=== PATIENT | male | born 1970 | race Caucasian/White ===

== ENCOUNTER → 2024-09-10 | Outpatient (CLI) | payer MEDICAID, SELFPAY ==
[2024-09-10 09:23] LABS: Hematocrit 43.8 % (40-54); Hemoglobin 14.9 g/dL (13.0-16.5); Mean Corpuscular Hgb 29.6 pg (27.0-32.0); Mean Corpuscular Volume 87.1 fL (80-94); Mean Platelet Vol. 8.6 fl (6.2-12.0); Platelet Count 290 K/mm3 (150-450); RBC Distribution Width CV 12.5 % (11.6-14.6); RBC Distribution Width SD 39.6 fl (35.1-43.9); Red Blood Count 5.03 M/mm3 (4.6-6.2)
[2024-09-10 09:43] LABS: Erythrocyte Sedimentation Rate 10 mm/hr (0-20)
[2024-09-10 09:57] LABS: Hemoglobin A1c 8.1 % (3.8-5.6)
[2024-09-10 10:17] LABS: AST(SGOT) 25 U/L (15-37); Alanine Aminotransfer ALT/SGPT 40 U/L (16-61); Albumin, Serum 3.6 g/dL (3.2-5.0); Alkaline Phosphatase 78 U/L (45-117); Amylase 24 U/L (25-115); Anion Gap 5 (5-15); BUN 11 mg/dL (7-18); BUN/Creat Ratio 12.8 RATIO (10-20); Bilirubin, Direct 0.22 mg/dL (0.00-0.30); Chloride 108 mmol/L (98-107); Cholesterol 195 mg/dL (200); Creatinine, Serum 0.86 mg/dL (0.70-1.30); EST Glomerular Filtration Rate 99 mL/min (>60); Est Glom Filt Rate - Afr Amer 120 mL/min (>60); Ferritin 123 ng/mL (26-388); Globulin 3.6 g/dL (2.2-4.2); Glucose 174 mg/dL (74-106); High Density Lipoprotein 54 mg/dL; Iron 89 ug/dL (65-175); Iron Binding Capacity,Total 276 ug/dL (250-450); Lipase 42 U/L (13-75); PSA,Total - Annual Screen 1.61 ng/mL (0.00-4.00); Potassium 3.9 mmol/L (3.5-5.1); Protein, Total 7.2 g/dL (6.4-8.2); Sodium Level 138 mmol/L (136-145); T4 Free Direct 1.02 ng/dL (0.76-1.46); Triglycerides 84 mg/dL; Uric Acid 4.6 mg/dL (3.5-7.2); Very Low Density Lipoprotein 17 mg/dL (5-40)
[2024-09-10 10:39] LABS: Hepatitis C Antibody Non-Reactive (Nonreactive); Vitamin B12 445 pg/mL (211-911); Vitamin D,25 Hydroxy 11.5 ng/mL
[2024-09-11 17:06] LABS: Anti-Mitochondrial AB <20.0 Units (0.0-20.0)
[2024-09-14 13:07] LABS: GGTP 22 IU/L (0-65); VITAMIN B6 10.5 ug/L (3.4-65.2)
== END | disposition home or self-care (01) ==
LOC: LAB 07:51
PROVIDERS: PCP Nurse Practitioner Family; Referring Provider Nurse Practitioner Family; Visit Provider Nurse Practitioner Family
DX: Z12.5 Encounter for screening for malignant neoplasm of prostate (principal); R10.9 Unspecified abdominal pain; F10.10 Alcohol abuse, uncomplicated; Z13.6 Encounter for screening for cardiovascular disorders; E55.9 Vitamin D deficiency, unspecified; Z87.442 Personal history of urinary calculi; Z13.1 Encounter for screening for diabetes mellitus; R53.82 Chronic fatigue, unspecified
CPT/HCPCS: 84153; 36415; 80053; 80061; 82150; 82248; 82306; 82607; 82728; 82746; 82977; 83036; 83516; 83540; 83550; 83690; 84207; 84439; 84443; 84550; 85027; 85652; 86803; G0103

== ENCOUNTER → 2025-07-02 | Outpatient (CLI) | payer MEDICAID, SELFPAY ==
--- OUTSIDE RECORDS SUMMARY | 2025-07-02 08:25 | XMS RPT_ITS | CCD ---
Author Organization [facility] Inform ion [facility] Care Team Providers Care Registered Nurse Teacher Name Role Phone DENIS LOU (NUCLEAR RADIATION ENGINEER) Unavailable Unavailable NOE ESTRELLA Unavailable Unavailable DENIS LOU (NUCLEAR RADIATION ENGINEER) Unavailable Unavailable Beverly FAMILY MEDIATOR, Abe Calles Referring Unav ailable Beverly FAMILY MEDIATOR, Abe Calles Attending Unav ailable Beverly FAMILY MEDIATOR, Abe Calles Primary Care Unav ailable BEVERLY SCIENTIFIC RESEARCH MANAGER - ABE WEN Attending U navailable BEVERLY SCIENTIFIC RESEARCH MANAGER - NUCLEAR RADIATION ENGINEER, ABE Gabriel Primary Care U navailable Problems Problem Classification Problem Date Documented Da te Episodic/Chronic Diabetes mellitus without complication (2 sources) Type 2 diabetes mellitus without complications; Translations: [Type 2 diabetes mellitus without complications] Onset: 01-10-2025 Chronic Other aftercare (1 source) Encounter for therapeutic drug level monitoring; Translations: [Encounter for therapeutic drug level monitoring] Onset: 04-06-2018 Episodic Unclassified (3 sources) Encounter for screening for lipoid disorders; Translations: [Encounter for screening for diabetes mellitus] Onset: 04-06-2018 Episodic Results Test Name Value Interpretation Reference Range [facility] 01-10-2025 U Creatinine 117.5 mg/dL Normal 40.0-278.0 [facility] Comment on above: Performed By: #### MALBR #### [address] [place], [place] [address] U Microalb 5.9 mg/L Normal [facility] Comment on above: Performed By: #### MALBR #### [address] [place], [place] [address] U Ratio Alb/Cre 5 mg/G Normal 0-30 [facility] Comment on above: Performed By: #### MALBR #### [address] [place], [place] [address] L3300.8200on 09-14-2024 VITAMIN B6 10.5 ug/L Normal 3.4-65.2 [facility] Comment on above: Order Comment: Test(s) 762839-Nsvguge B6 was developed and its performance characteristicsdetermined by [facility]. It has not been cleared or approvedby the Food and Drug Administration. Result Comment: Defi ciency: <3.4 Marginal: 3.4 - 5.1 Adequate: >5.1 Performed By: #### L 501.4700, L501.5101, L3300.8200, L100.0500, L3890.6300, L503.0105, L501.1400, L500.4100, L506.1000, L501.9910, L500.4050, L501.2400, L506.0400, L506.0250, L501.2450, L501.9520, L503.6075, L501.9985, L503.6150, L101.9900, L800.1280, L503.6550 #### [facility] [address] [place], [place], [address] L501.5101on 09-14-2024 GGTP 22 IU/L Normal 0-65 [facility] Comment on above: Order Comment: Test(s) [id number]-Oormpwc B6 was developed and its performance characteristicsdetermined by [facility]. It has not been cleared or approvedby the Food and Drug Administration. Result Comment: Perf ormed at: [address] [id number] Manager Diesel: Macario Lynn MD, Phone: [phone] Performed at: [address] [id number] Manager Diesel: Dio Ambriz PhD, Phone: [phone] Performed By: #### L 501.4700, L501.5101, L3300.8200, L100.0500, L3890.6300, L503.0105, L501.1400, L500.4100, L506.1000, L501.9910, L500.4050, L501.2400, L506.0400, L506.0250, L501.2450, L501.9520, L503.6075, L501.9985, L503.6150, L101.9900, L800.1280, L503.6550 #### [facility] [address] [facility] [place], [place], [id number] Anti-Mitochondrial ABon 08-25 ANTIMITOCHON AB <20.0 Normal 0.0-20.0 [facility] Comment on above: Result Comment: Negative 0.0 - 20.0 Equivocal 20.1 - 24.9 Positive >24.9 Mitochondrial (M2) Antibodies are found in 90-96% of patients with primary biliary cirrhosis. Performed at: [address] [id number] Manager Diesel: Dio Ambriz PhD, Phone: [phone] Performed By: #### L 501.4700, L501.5101, L3300.8200, L100.0500, L3890.6300, L503.0105, L501.1400, L500.4100, L506.1000, L501.9910, L500.4050, L501.2400, L506.0400, L506.0250, L501.2450, L501.9520, L503.6075, L501.9985, L503.6150, L101.9900, L800.1280, L503.6550 #### [facility] [address] [place], [place], [id number] Amylaseon 09-10-2024 LOLA 24 U/L Low 25-115 [facility] Comment on above: Order Comment: N Performed By: #### L 501.4700, L501.5101, L3300.8200, L100.0500, L3890.6300, L503.0105, L501.1400, L500.4100, L506.1000, L501.9910, L500.4050, L501.2400, L506.0400, L506.0250, L501.2450, L501.9520, L503.6075, L501.9985, L503.6150, L101.9900, L800.1280, L503.6550 #### [facility] [address] [place], [place], [address] Bilirubin, Directon 09-10-19 Bilirubin.direct [Mass/Vol] 0.22 mg/dL Normal 0.00-0.30 [facility] Comment on above: Order Comment: N Performed By: #### L 501.4700, L501.5101, L3300.8200, L100.0500, L3890.6300, L503.0105, L501.1400, L500.4100, L506.1000, L501.9910, L500.4050, L501.2400, L506.0400, L506.0250, L501.2450, L501.9520, L503.6075, L501.9985, L503.6150, L101.9900, L800.1280, L503.6550 #### [facility] [address] [place], [address] CBC-Complete Blood Cnt No Di ffon 09-10-2024 Erythrocyte distribution width (RBC) [Ratio] 12.5 % Normal 11.6-14.6 [facility] Comment on above: Performed By: #### L501.4700, L501.5101, L3300.8200, L100.0500, L3890.6300, L503.0105, L501.1400, L500.4100, L506.1000, L501.9910, L500.4050, L501.2400, L506.0400, L506.0250, L501.2450, L501.9520, L503.6075, L501.9985, L503.6150, L101.9900, L800.1280, L503.6550 #### [facility] [address] [place], [place], [id number] Hematocrit (Bld) [Volume fraction] 43.8 % Normal 40-54 [facility] Comment on above: Performed By: #### L501.4700, L501.5101, L3300.8200, L100.0500, L3890.6300, L503.0105, L501.1400, L500.4100, L506.1000, L501.9910, L500.4050, L501.2400, L506.0400, L506.0250, L501.2450, L501.9520, L503.6075, L501.9985, L503.6150, L101.9900, L800.1280, L503.6550 #### [facility] [address] [place], [address] (646) Hemoglobin (Bld) [Mass/Vol] 14.9 g/dL Normal 13.0-16.5 [facility] Comment on above: Performed By: #### L501.4700, L501.5101, L3300.8200, L100.0500, L3890.6300, L503.0105, L501.1400, L500.4100, L506.1000, L501.9910, L500.4050, L501.2400, L506.0400, L506.0250, L501.2450, L501.9520, L503.6075, L501.9985, L503.6150, L101.9900, L800.1280, L503.6550 #### [facility] [address] [place], [address] MCH (RBC) [Entitic mass] 29.6 pg Normal 27.0-32.0 [facility] Comment on above: Performed By: #### L501.4700, L501.5101, L3300.8200, L100.0500, L3890.6300, L503.0105, L501.1400, L500.4100, L506.1000, L501.9910, L500.4050, L501.2400, L506.0400, L506.0250, L501.2450, L501.9520, L503.6075, L501.9985, L503.6150, L101.9900, L800.1280, L503.6550 #### [facility] [address] [place], [address] MCHC (RBC) [Mass/Vol] 34.0 g/dL Normal 32-36 [facility] Comment on above: Performed By: #### L501.4700, L501.5101, L3300.8200, L100.0500, L3890.6300, L503.0105, L501.1400, L500.4100, L506.1000, L501.9910, L500.4050, L501.2400, L506.0400, L506.0250, L501.2450, L501.9520, L503.6075, L501.9985, L503.6150, L101.9900, L800.1280, L503.6550 #### [facility] [address] [place], [address] MCV (RBC) [Entitic vol] 87.1 fL Normal 80-94 [facility] Comment on above: Performed By: #### L501.4700, L501.5101, L3300.8200, L100.0500, L3890.6300, L503.0105, L501.1400, L500.4100, L506.1000, L501.9910, L500.4050, L501.2400, L506.0400, L506.0250, L501.2450, L501.9520, L503.6075, L501.9985, L503.6150, L101.9900, L800.1280, L503.6550 #### [facility] [address] [place], [address] Platelet mean volume (Bld) [Entitic vol] 8.6 fL Normal 6.2-12.0 [facility] Comment on above: Performed By: #### L501.4700, L501.5101, L3300.8200, L100.0500, L3890.6300, L503.0105, L501.1400, L500.4100, L506.1000, L501.9910, L500.4050, L501.2400, L506.0400, L506.0250, L501.2450, L501.9520, L503.6075, L501.9985, L503.6150, L101.9900, L800.1280, L503.6550 #### [facility] [address] [facility] [place], [place], [id number] (940) Platelets (Bld) [#/Vol] 290 10*3/uL Normal 150-450 [facility] Comment on above: Performed By: #### L501.4700, L501.5101, L3300.8200, L100.0500, L3890.6300, L503.0105, L501.1400, L500.4100, L506.1000, L501.9910, L500.4050, L501.2400, L506.0400, L506.0250, L501.2450, L501.9520, L503.6075, L501.9985, L503.6150, L101.9900, L800.1280, L503.6550 #### [facility] [address] [facility] [place], [place], [id number] (502) RBC (Bld) [#/Vol] 5.03 10*6/uL Normal 4.6-6.2 [facility] Comment on above: Performed By: #### L501.4700, L501.5101, L3300.8200, L100.0500, L3890.6300, L503.0105, L501.1400, L500.4100, L506.1000, L501.9910, L500.4050, L501.2400, L506.0400, L506.0250, L501.2450, L501.9520, L503.6075, L501.9985, L503.6150, L101.9900, L800.1280, L503.6550 #### [facility] [address] [place], [place], [id number] RDW SD 39.6 fl Normal 35.1-43.9 [facility] Comment on above: Performed By: #### L501.4700, L501.5101, L3300.8200, L100.0500, L3890.6300, L503.0105, L501.1400, L500.4100, L506.1000, L501.9910, L500.4050, L501.2400, L506.0400, L506.0250, L501.2450, L501.9520, L503.6075, L501.9985, L503.6150, L101.9900, L800.1280, L503.6550 #### [facility] [address] [place], [address] WBC (Bld) [#/Vol] 7.0 10*3/uL Normal 4.4-11.0 [facility] Comment on above: Performed By: #### L501.4700, L501.5101, L3300.8200, L100.0500, L3890.6300, L503.0105, L501.1400, L500.4100, L506.1000, L501.9910, L500.4050, L501.2400, L506.0400, L506.0250, L501.2450, L501.9520, L503.6075, L501.9985, L503.6150, L101.9900, L800.1280, L503.6550 #### [facility] [address] [place], [address] Comprehensive Metabolic Prof [facility] 09-10-2024 Albumin [Mass/Vol] 3.6 g/dL Normal 3.2-5.0 [facility] Comment on above: Order Comment: N Performed By: #### L 501.4700, L501.5101, L3300.8200, L100.0500, L3890.6300, L503.0105, L501.1400, L500.4100, L506.1000, L501.9910, L500.4050, L501.2400, L506.0400, L506.0250, L501.2450, L501.9520, L503.6075, L501.9985, L503.6150, L101.9900, L800.1280, L503.6550 #### [facility] [address] [facility] [place], [place], [id number] Albumin/Globulin [Mass ratio] 1.0 {ratio} Normal 0.9-2.4 [facility] Comment on above: Order Comment: N Performed By: #### L 501.4700, L501.5101, L3300.8200, L100.0500, L3890.6300, L503.0105, L501.1400, L500.4100, L506.1000, L501.9910, L500.4050, L501.2400, L506.0400, L506.0250, L501.2450, L501.9520, L503.6075, L501.9985, L503.6150, L101.9900, L800.1280, L503.6550 #### [facility] [address] [place], [address] ALK P 78 U/L Normal 45-117 [facility] Comment on above: Order Comment: N Performed By: #### L 501.4700, L501.5101, L3300.8200, L100.0500, L3890.6300, L503.0105, L501.1400, L500.4100, L506.1000, L501.9910, L500.4050, L501.2400, L506.0400, L506.0250, L501.2450, L501.9520, L503.6075, L501.9985, L503.6150, L101.9900, L800.1280, L503.6550 #### [facility] [address] [facility] [place], [address] ALT [Catalytic activity/Vol] 40 U/L Normal 16-61 [facility] Comment on above: Order Comment: N Performed By: #### L 501.4700, L501.5101, L3300.8200, L100.0500, L3890.6300, L503.0105, L501.1400, L500.4100, L506.1000, L501.9910, L500.4050, L501.2400, L506.0400, L506.0250, L501.2450, L501.9520, L503.6075, L501.9985, L503.6150, L101.9900, L800.1280, L503.6550 #### [facility] [address] [facility] [place], [address] AST [Catalytic activity/Vol] 25 U/L Normal 15-37 [facility] Comment on above: Order Comment: N Performed By: #### L 501.4700, L501.5101, L3300.8200, L100.0500, L3890.6300, L503.0105, L501.1400, L500.4100, L506.1000, L501.9910, L500.4050, L501.2400, L506.0400, L506.0250, L501.2450, L501.9520, L503.6075, L501.9985, L503.6150, L101.9900, L800.1280, L503.6550 #### [facility] [address] [facility] [place], [address] Bilirubin [Mass/Vol] 0.90 mg/dL Normal 0.20-1.00 [facility] Comment on above: Order Comment: N Result Comment: For patients on eltrombopag therapy, use of Dimension [place] TBIL is not recommended. Performed By: #### L 501.4700, L501.5101, L3300.8200, L100.0500, L3890.6300, L503.0105, L501.1400, L500.4100, L506.1000, L501.9910, L500.4050, L501.2400, L506.0400, L506.0250, L501.2450, L501.9520, L503.6075, L501.9985, L503.6150, L101.9900, L800.1280, L503.6550 #### [facility] [address] [place], [place], [id number] BUN/CRE 12.8 RATIO Normal 10-20 [facility] Comment on above: Order Comment: N Performed By: #### L 501.4700, L501.5101, L3300.8200, L100.0500, L3890.6300, L503.0105, L501.1400, L500.4100, L506.1000, L501.9910, L500.4050, L501.2400, L506.0400, L506.0250, L501.2450, L501.9520, L503.6075, L501.9985, L503.6150, L101.9900, L800.1280, L503.6550 #### [facility] [address] [place], [place], [id number] CA,Total 9.0 mg/dL Normal 8.5-10.1 [facility] Comment on above: Order Comment: N Performed By: #### L 501.4700, L501.5101, L3300.8200, L100.0500, L3890.6300, L503.0105, L501.1400, L500.4100, L506.1000, L501.9910, L500.4050, L501.2400, L506.0400, L506.0250, L501.2450, L501.9520, L503.6075, L501.9985, L503.6150, L101.9900, L800.1280, L503.6550 #### [facility] [address] [place], [address] Chloride [Moles/Vol] 108 mmol/L High 98-107 [facility] Comment on above: Order Comment: N Performed By: #### L 501.4700, L501.5101, L3300.8200, L100.0500, L3890.6300, L503.0105, L501.1400, L500.4100, L506.1000, L501.9910, L500.4050, L501.2400, L506.0400, L506.0250, L501.2450, L501.9520, L503.6075, L501.9985, L503.6150, L101.9900, L800.1280, L503.6550 #### [facility] [address] [place], [address] CO2 [Moles/Vol] 25.0 mmol/L Normal 21.0-32.0 [facility] Comment on above: Order Comment: N Performed By: #### L 501.4700, L501.5101, L3300.8200, L100.0500, L3890.6300, L503.0105, L501.1400, L500.4100, L506.1000, L501.9910, L500.4050, L501.2400, L506.0400, L506.0250, L501.2450, L501.9520, L503.6075, L501.9985, L503.6150, L101.9900, L800.1280, L503.6550 #### [facility] [address] [place], [place], [id number] Creatinine [Mass/Vol] 0.86 mg/dL Normal 0.70-1.30 [facility] Comment on above: Order Comment: N Result Comment: The validity of the calculated GFR GFRAA in patients over 70 years has not been determined. Clinical correlation is essential. Performed By: #### L 501.4700, L501.5101, L3300.8200, L100.0500, L3890.6300, L503.0105, L501.1400, L500.4100, L506.1000, L501.9910, L500.4050, L501.2400, L506.0400, L506.0250, L501.2450, L501.9520, L503.6075, L501.9985, L503.6150, L101.9900, L800.1280, L503.6550 #### [facility] [address] [place], [address] EST GFR - AA 120 mL/min Normal >60 [facility] Comment on above: Order Comment: N Result Comment: Afri can Mozambican GFR Calc Performed By: #### L 501.4700, L501.5101, L3300.8200, L100.0500, L3890.6300, L503.0105, L501.1400, L500.4100, L506.1000, L501.9910, L500.4050, L501.2400, L506.0400, L506.0250, L501.2450, L501.9520, L503.6075, L501.9985, L503.6150, L101.9900, L800.1280, L503.6550 #### [facility] [address] [place], [address] GAP 5 Normal 5-15 [facility] Comment on above: Order Comment: N Performed By: #### L 501.4700, L501.5101, L3300.8200, L100.0500, L3890.6300, L503.0105, L501.1400, L500.4100, L506.1000, L501.9910, L500.4050, L501.2400, L506.0400, L506.0250, L501.2450, L501.9520, L503.6075, L501.9985, L503.6150, L101.9900, L800.1280, L503.6550 #### [facility] [address] [facility] [place], [address] GFR/1.73 sq M.predicted among non-blacks MDRD (S/P/Bld) [Vol rate/Area] 99 mL/min/{1.73_m2} Normal >60 [facility] Comment on above: Order Comment: N Result Comment: Non- GFR Calc Performed By: #### L 501.4700, L501.5101, L3300.8200, L100.0500, L3890.6300, L503.0105, L501.1400, L500.4100, L506.1000, L501.9910, L500.4050, L501.2400, L506.0400, L506.0250, L501.2450, L501.9520, L503.6075, L501.9985, L503.6150, L101.9900, L800.1280, L503.6550 #### [facility] [address] [facility] [place], [place], [id number] Globulin (S) [Mass/Vol] 3.6 g/dL Normal 2.2-4.2 [facility] Comment on above: Order Comment: N Performed By: #### L 501.4700, L501.5101, L3300.8200, L100.0500, L3890.6300, L503.0105, L501.1400, L500.4100, L506.1000, L501.9910, L500.4050, L501.2400, L506.0400, L506.0250, L501.2450, L501.9520, L503.6075, L501.9985, L503.6150, L101.9900, L800.1280, L503.6550 #### [facility] [address] [place], [address] Glucose [Mass/Vol] 174 mg/dL High 74-106 [facility] Comment on above: Order Comment: N Result Comment: Fast ing Glucose result greater than or equal to 126 mg/dL suggests DIABETES MELLITUS per A.D.A. criteria. Performed By: #### L 501.4700, L501.5101, L3300.8200, L100.0500, L3890.6300, L503.0105, L501.1400, L500.4100, L506.1000, L501.9910, L500.4050, L501.2400, L506.0400, L506.0250, L501.2450, L501.9520, L503.6075, L501.9985, L503.6150, L101.9900, L800.1280, L503.6550 #### [facility] [address] [facility] [place], [address] Potassium [Moles/Vol] 3.9 mmol/L Normal 3.5-5.1 [facility] Comment on above: Order Comment: N Performed By: #### L 501.4700, L501.5101, L3300.8200, L100.0500, L3890.6300, L503.0105, L501.1400, L500.4100, L506.1000, L501.9910, L500.4050, L501.2400, L506.0400, L506.0250, L501.2450, L501.9520, L503.6075, L501.9985, L503.6150, L101.9900, L800.1280, L503.6550 #### [facility] [address] [place], [address] Sodium [Moles/Vol] 138 mmol/L Normal 136-145 [facility] Comment on above: Order Comment: N Performed By: #### L 501.4700, L501.5101, L3300.8200, L100.0500, L3890.6300, L503.0105, L501.1400, L500.4100, L506.1000, L501.9910, L500.4050, L501.2400, L506.0400, L506.0250, L501.2450, L501.9520, L503.6075, L501.9985, L503.6150, L101.9900, L800.1280, L503.6550 #### [facility] [address] [place], [place], [id number] T PROT 7.2 g/dL Normal 6.4-8.2 [facility] Comment on above: Order Comment: N Performed By: #### L 501.4700, L501.5101, L3300.8200, L100.0500, L3890.6300, L503.0105, L501.1400, L500.4100, L506.1000, L501.9910, L500.4050, L501.2400, L506.0400, L506.0250, L501.2450, L501.9520, L503.6075, L501.9985, L503.6150, L101.9900, L800.1280, L503.6550 #### [facility] [address] [place], [address] Urea nitrogen [Mass/Vol] 11 mg/dL Normal 7-18 [facility] Comment on above: Order Comment: N Performed By: #### L 501.4700, L501.5101, L3300.8200, L100.0500, L3890.6300, L503.0105, L501.1400, L500.4100, L506.1000, L501.9910, L500.4050, L501.2400, L506.0400, L506.0250, L501.2450, L501.9520, L503.6075, L501.9985, L503.6150, L101.9900, L800.1280, L503.6550 #### [facility] [address] [place], [address] Erythrocyte Sed Rateon 09-10 SED RATE 10 mm/hr Normal 0-20 [facility] Comment on above: Performed By: #### L501.4700, L501.5101, L3300.8200, L100.0500, L3890.6300, L503.0105, L501.1400, L500.4100, L506.1000, L501.9910, L500.4050, L501.2400, L506.0400, L506.0250, L501.2450, L501.9520, L503.6075, L501.9985, L503.6150, L101.9900, L800.1280, L503.6550 #### [facility] [address] [place], [address] Ferritinon 09-10-2024 Ferritin [Mass/Vol] 123 ng/mL Normal 26-388 [facility] Comment on above: Order Comment: N Performed By: #### L 501.4700, L501.5101, L3300.8200, L100.0500, L3890.6300, L503.0105, L501.1400, L500.4100, L506.1000, L501.9910, L500.4050, L501.2400, L506.0400, L506.0250, L501.2450, L501.9520, L503.6075, L501.9985, L503.6150, L101.9900, L800.1280, L503.6550 #### [facility] [address] [place], [address] Folates, (Folic Acid)on 08-25 FOLATES 14.20 ng/mL Normal 3.1-55.4 [facility] Comment on above: Order Comment: N Performed By: #### L 501.4700, L501.5101, L3300.8200, L100.0500, L3890.6300, L503.0105, L501.1400, L500.4100, L506.1000, L501.9910, L500.4050, L501.2400, L506.0400, L506.0250, L501.2450, L501.9520, L503.6075, L501.9985, L503.6150, L101.9900, L800.1280, L503.6550 #### [facility] [address] [facility] [place], [place], [id number] Hemoglobin A1con 09-10-2024 HbA1c (Bld) [Mass fraction] 8.1 % High 3.8-5.6 [facility] Comment on above: Result Comment: Normal < 5.7 % Prediabetic 5.7 - 6.4 % Diabetic >or= 6.5 % Please note range changes. Performed By: #### L 501.4700, L501.5101, L3300.8200, L100.0500, L3890.6300, L503.0105, L501.1400, L500.4100, L506.1000, L501.9910, L500.4050, L501.2400, L506.0400, L506.0250, L501.2450, L501.9520, L503.6075, L501.9985, L503.6150, L101.9900, L800.1280, L503.6550 #### [facility] [address] [facility] [place], [place], [id number] Hepatitis C Antibodyon 09-10 Hepatitis C AB Non-Reactive Normal Nonreactive [facility] Comment on above: Result Comment: Non Reactive: < 0.8 Equivocal: >/= 0.8 to < 1.0 Reactive: >/= 1.0 The CDC requires that a reactive/equivocal HCV antibody result be sent out for confirmation. HCV Quant by PCR testing. Performed By: #### L 501.4700, L501.5101, L3300.8200, L100.0500, L3890.6300, L503.0105, L501.1400, L500.4100, L506.1000, L501.9910, L500.4050, L501.2400, L506.0400, L506.0250, L501.2450, L501.9520, L503.6075, L501.9985, L503.6150, L101.9900, L800.1280, L503.6550 #### [facility] [address] [facility] [place], [place], [id number] Ironon 09-10-2024 Iron [Mass/Vol] 89 ug/dL Normal 65-175 [facility] Comment on above: Order Comment: N Performed By: #### L 501.4700, L501.5101, L3300.8200, L100.0500, L3890.6300, L503.0105, L501.1400, L500.4100, L506.1000, L501.9910, L500.4050, L501.2400, L506.0400, L506.0250, L501.2450, L501.9520, L503.6075, L501.9985, L503.6150, L101.9900, L800.1280, L503.6550 #### [facility] [address] [facility] [place], [place], [id number] [phone] Iron Binding Capacity,Totalo n 09-10-2024 TIBC 276 ug/dL Normal 250-450 [facility] Comment on above: Order Comment: N Performed By: #### L 501.4700, L501.5101, L3300.8200, L100.0500, L3890.6300, L503.0105, L501.1400, L500.4100, L506.1000, L501.9910, L500.4050, L501.2400, L506.0400, L506.0250, L501.2450, L501.9520, L503.6075, L501.9985, L503.6150, L101.9900, L800.1280, L503.6550 #### [facility] [address] [place], [place], [id number] Lipaseon 09-10-2024 Lipase [Catalytic activity/Vol] 42 U/L Normal 13-75 [facility] Comment on above: Order Comment: N Result Comment: Bakari macias note: LIPASE revised reference range effective 22. New Lipase methodology. Expected to produce lower values than the previous assay method. NEW Reference Range: 13 - 75 U/L Performed By: #### L 501.4700, L501.5101, L3300.8200, L100.0500, L3890.6300, L503.0105, L501.1400, L500.4100, L506.1000, L501.9910, L500.4050, L501.2400, L506.0400, L506.0250, L501.2450, L501.9520, L503.6075, L501.9985, L503.6150, L101.9900, L800.1280, L503.6550 #### [facility] [address] [place], [address] Lipid Profileon 09-10-2024 Cholesterol [Mass/Vol] 195 mg/dL Normal 200 [facility] Comment on above: Order Comment: N Result Comment: <200 mg/dL Desirable 200-240 mg/dL Borderline >240 mg/dL High Risk Performed By: #### L 501.4700, L501.5101, L3300.8200, L100.0500, L3890.6300, L503.0105, L501.1400, L500.4100, L506.1000, L501.9910, L500.4050, L501.2400, L506.0400, L506.0250, L501.2450, L501.9520, L503.6075, L501.9985, L503.6150, L101.9900, L800.1280, L503.6550 #### [facility] [address] [place], [address] (313) Cholesterol in HDL [Mass/Vol] 54 mg/dL Normal [facility] Comment on above: Order Comment: N Result Comment: The drugs N-Acetylcysteine and Metamizole may falsely depress this assay. Reference Range HDL <40 mg/dL Low HDL Cholesterol HDL >or= 60 mg/dL High HDL Cholesterol Performed By: #### L 501.4700, L501.5101, L3300.8200, L100.0500, L3890.6300, L503.0105, L501.1400, L500.4100, L506.1000, L501.9910, L500.4050, L501.2400, L506.0400, L506.0250, L501.2450, L501.9520, L503.6075, L501.9985, L503.6150, L101.9900, L800.1280, L503.6550 #### [facility] [address] [place], [address] Cholesterol in LDL [Mass/Vol] 124 mg/dL Normal 0-130 [facility] Comment on above: Order Comment: N Performed By: #### L 501.4700, L501.5101, L3300.8200, L100.0500, L3890.6300, L503.0105, L501.1400, L500.4100, L506.1000, L501.9910, L500.4050, L501.2400, L506.0400, L506.0250, L501.2450, L501.9520, L503.6075, L501.9985, L503.6150, L101.9900, L800.1280, L503.6550 #### [facility] [address] [facility] [place], [address] Cholesterol in VLDL [Mass/Vol] 17 mg/dL Normal 5-40 [facility] Comment on above: Order Comment: N Performed By: #### L 501.4700, L501.5101, L3300.8200, L100.0500, L3890.6300, L503.0105, L501.1400, L500.4100, L506.1000, L501.9910, L500.4050, L501.2400, L506.0400, L506.0250, L501.2450, L501.9520, L503.6075, L501.9985, L503.6150, L101.9900, L800.1280, L503.6550 #### [facility] [address] [facility]. [place], [place], [id number] Triglyceride [Mass/Vol] 84 mg/dL Normal [facility] Comment on above: Order Comment: N Result Comment: The drugs N-Acetylcysteine and Metamizole may falsely depress this assay. Serum Triglycerides Reference Interval Normal <150 mg/dL Borderline high 150 - 199 mg/dL High 200 - 499 mg/dL Very High > or = 500 mg/dL Performed By: #### L 501.4700, L501.5101, L3300.8200, L100.0500, L3890.6300, L503.0105, L501.1400, L500.4100, L506.1000, L501.9910, L500.4050, L501.2400, L506.0400, L506.0250, L501.2450, L501.9520, L503.6075, L501.9985, L503.6150, L101.9900, L800.1280, L503.6550 #### [facility] [address] [facility]. [place], [place], [id number] PSA,Total - Annual Screenon 09-10-2024 PSA,TOT SCREEN 1.61 ng/mL Normal 0.00-4.00 [facility] Comment on above: Order Comment: N Result Comment: This test was performed using the TPSA assay method for the [employer] chemistry system. Values obtained with different assay methods cannot be used interchangably. When changing PSA assays in the course of monitoring a patient, additional sequential testing should be carried out to confirm baseline values. Performed By: #### L 501.4700, L501.5101, L3300.8200, L100.0500, L3890.6300, L503.0105, L501.1400, L500.4100, L506.1000, L501.9910, L500.4050, L501.2400, L506.0400, L506.0250, L501.2450, L501.9520, L503.6075, L501.9985, L503.6150, L101.9900, L800.1280, L503.6550 #### [facility] [address] [place], [address] T4 Free Directon 09-10-2024 T4 FREE DIRECT 1.02 ng/dL Normal 0.76-1.46 [facility] Comment on above: Order Comment: N Performed By: #### L 501.4700, L501.5101, L3300.8200, L100.0500, L3890.6300, L503.0105, L501.1400, L500.4100, L506.1000, L501.9910, L500.4050, L501.2400, L506.0400, L506.0250, L501.2450, L501.9520, L503.6075, L501.9985, L503.6150, L101.9900, L800.1280, L503.6550 #### [facility] [address] [facility] [place], [address] Thyroid Stim Hormone (TSH)on 09-10-2024 TSH 1.350 uIU/mL Normal 0.358-3.740 [facility] Comment on above: Order Comment: N Performed By: #### L 501.4700, L501.5101, L3300.8200, L100.0500, L3890.6300, L503.0105, L501.1400, L500.4100, L506.1000, L501.9910, L500.4050, L501.2400, L506.0400, L506.0250, L501.2450, L501.9520, L503.6075, L501.9985, L503.6150, L101.9900, L800.1280, L503.6550 #### [facility] [address] [place], [address] Uric Acidon 09-10-2024 URIC 4.6 mg/dL Normal 3.5-7.2 [facility] Comment on above: Order Comment: N Result Comment: The drugs N-Acetylcysteine and Metamizole may falsely depress this assay. Performed By: #### L 501.4700, L501.5101, L3300.8200, L100.0500, L3890.6300, L503.0105, L501.1400, L500.4100, L506.1000, L501.9910, L500.4050, L501.2400, L506.0400, L506.0250, L501.2450, L501.9520, L503.6075, L501.9985, L503.6150, L101.9900, L800.1280, L503.6550 #### [facility] [address] [place], [place], [id number] Vitamin B12on 09-10-2024 Cobalamin (Vitamin B12) [Mass/Vol] 445 pg/mL Normal 211-911 [facility] Comment on above: Performed By: #### L501.4700, L501.5101, L3300.8200, L100.0500, L3890.6300, L503.0105, L501.1400, L500.4100, L506.1000, L501.9910, L500.4050, L501.2400, L506.0400, L506.0250, L501.2450, L501.9520, L503.6075, L501.9985, L503.6150, L101.9900, L800.1280, L503.6550 #### [facility] [address] [place], [address] Vitamin D,25 Hydroxyon 09-10 Vitamin D 25-OH 11.5 ng/mL Normal [facility] Comment on above: Result Comment: Vitamin D 25(OH) Status Range Deficiency <20 ng/mL (50nmol/L) Insufficiency 20 - 30 ng/mL (50 - 75 nmol/L) Sufficiency 30 - 100 ng/mL (75 - 250 nmol/L) Toxicity >100 ng/mL (>250 nmol/L) Performed By: #### L 501.4700, L501.5101, L3300.8200, L100.0500, L3890.6300, L503.0105, L501.1400, L500.4100, L506.1000, L501.9910, L500.4050, L501.2400, L506.0400, L506.0250, L501.2450, L501.9520, L503.6075, L501.9985, L503.6150, L101.9900, L800.1280, L503.6550 #### [facility] [address] [place], [place], [id number] CBCon 04-06-2018 Absolute nRBC <0.01 Normal <0.01 [facility] Comment on above: Performed By: #### CBC, CMP, LIPNF ####C [address] [phone] Erythrocyte distribution width Auto Ratio (RBC) 12.7 % Normal 11.5-15.0 [facility] Comment on above: Performed By: #### CBC, CMP, LIPNF ####C [address] [phone] Hematocrit Auto Volume Fraction (Bld) 44.9 % Normal 39.0-51.0 [facility] Comment on above: Performed By: #### CBC, CMP, LIPNF ####C [address] [phone] Hemoglobin mass conc (Bld) 15.1 g/dL Normal 13.0-17.0 [facility] Comment on above: Performed By: #### CBC, CMP, LIPNF ####C [place] [phone] MCH Auto Entitic mass (RBC) 31.3 pG Normal 26.0-34.0 [facility] Comment on above: Performed By: #### CBC, CMP, LIPNF ####C [phone] MCHC Auto mass conc (RBC) 33.6 g/dL Normal 30.5-36.0 [facility] Comment on above: Performed By: #### CBC, CMP, LIPNF ####C [place] [phone] MCV Auto Entitic volume (RBC) 93.0 fL Normal 80.0-100.0 [facility] Comment on above: Performed By: #### CBC, CMP, LIPNF ####C [place] [phone] Platelet mean volume Auto Entitic volume (Bld) 9.3 fL Normal 9.0-12.7 [facility] Comment on above: Performed By: #### CBC, CMP, LIPNF ####C [place] [phone] Platelets Auto #/vol (Bld) 269 10*3/uL Normal 150-400 [facility] Comment on above: Performed By: #### CBC, CMP, LIPNF ####C [place] [phone] RBC Auto #/vol (Bld) 4.83 10*6/uL Normal 4.20-6.00 [facility] Comment on above: Performed By: #### CBC, CMP, LIPNF ####C [place] [phone] WBC Auto #/vol (Bld) 5.44 10*3/uL Normal 3.70-11.00 [facility] Comment on above: Performed By: #### CBC, CMP, LIPNF ####[address] [place] [phone] Comp Metabolic Panelon 04-06 Albumin mass conc 4.2 g/dL Normal 3.9-4.9 [facility] Comment on above: Performed By: #### CBC, CMP, LIPNF ####C [place] [phone] ALP enzyme act/vol 58 U/L Normal 36-108 [facility] Comment on above: Performed By: #### CBC, CMP, LIPNF ####C [place] [phone] ALT enzyme act/vol 36 U/L Normal 10-54 [facility] Comment on above: Performed By: #### CBC, CMP, LIPNF ####C [place] [phone] Anion gap 3 molar conc 16 mmol/L Normal 9-18 [facility] Comment on above: Performed By: #### CBC, CMP, LIPNF ####C [place] [phone] AST enzyme act/vol 38 U/L Normal 14-40 [facility] Comment on above: Performed By: #### CBC, CMP, LIPNF ####C [address] [place] [phone] Bilirubin mass conc 0.6 mg/dL Normal 0.2-1.3 [facility] Comment on above: Performed By: #### CBC, CMP, LIPNF ####[address] [place] [phone] Calcium mass conc 8.7 mg/dL Normal 8.5-10.2 [facility] Comment on above: Performed By: #### CBC, CMP, LIPNF ####C [phone] Chloride molar conc 105 mmol/L Normal 97-105 [facility] Comment on above: Performed By: #### CBC, CMP, LIPNF ####C [place] [phone] CO2 molar conc 21 mmol/L Low 22-30 [facility] Comment on above: Performed By: #### CBC, CMP, LIPNF ####C [phone] Creatinine mass conc 0.90 mg/dL Normal 0.73-1.22 [facility] Comment on above: Performed By: #### CBC, CMP, LIPNF ####C [place] [phone] eGFR- Amer. >60 Normal [facility] Comment on above: Performed By: #### CBC, CMP, LIPNF ####C [place] [phone] GFR/1.73 sq M predicted among non-blacks MDRD vol rate/area (S/P/Bld) mL/min/{1.73_m2} Normal [facility] Comment on above: Result Comment: eGFR (Estimated GFR) Uni ts of measure: mL/min/1.73 meters squaredeGFR is derived from the reexpressed MDRD Study equation using the following parameters: serum creatinine, age, gender and race. The creatinine assay has been calibrated to be traceable to IDMS.An eGFR <60 mL/min/1.73m2 for >3 months is consistent with chronic kidney disease. Refer to KDOQI guidelines for clinical interpretation.In patients with unstable renal function, e.g. those with acute kidney injury, the eGFR may not accurately reflect actual GFR. Performed By: #### C BC, CMP, LIPNF ####[place] [phone] Glucose mass conc 161 mg/dL High 74-99 [facility] Comment on above: Result Comment: The [place] Diabetes As sociation (ADA) provides guidance for cutoff values for fasting glucose and random glucose. The ADA defines fasting as no caloric intake for at least 8 hours. Fasting plasma glucose results between 100 to 125 mg/dL indicate increased risk for diabetes (prediabetes).Fasting plasma glucose results greater than or equal to 126 mg/dL meet the criteria for diagnosis of diabetes. In the absence of unequivocal hyperglycemia, results should be confirmed by repeat testing. In a patient with classic symptoms of hyperglycemia or hyperglycemic crisis, random plasma glucose results greater than or equal to 200 mg/dL meet the criteria for diagnosis of diabetes.Reference: Standards of Medical Care in Diabetes 2016, [place] [employer] Association. Diabetes Care. 2016.39(Suppl 1). Performed By: #### C BC, CMP, LIPNF ####[place] [phone] Potassium molar conc 3.9 mmol/L Normal 3.7-5.1 [facility] Comment on above: Performed By: #### CBC, CMP, LIPNF ####C [place] [phone] Protein mass conc 7.0 g/dL Normal 6.3-8.0 [facility] Comment on above: Performed By: #### CBC, CMP, LIPNF ####C [place] [phone] Sodium molar conc 142 mmol/L Normal 136-144 [facility] Comment on above: Performed By: #### CBC, CMP, LIPNF ####C [place] [phone] Urea nitrogen mass conc 7 mg/dL Low 9-24 [facility] Comment on above: Performed By: #### CBC, CMP, LIPNF ####C [place] [phone] Lipid Panel, Nonfaston 04-06 Cholesterol in LDL/Cholesterol in HDL mass ratio 2.13 mg/dL Normal <2.54 [facility] Comment on above: Result Comment: Reference:1. National Ch olesterol Education Program ATP III Guideline At-A-Glance Quick Desk Reference: National Heart, Lung, and Blood [place]. National Institutes of Health. 2001: NIH Publication No. 01-3305.2. An International Atherosclerosis Society position paper: global recommendations for the management of dyslipidemia: executive summary, Atherosclerosis. 2014: 232(2):410-413. Performed By: #### C BC, CMP, LIPNF ####[place] [address] [phone] Cholesterol mass conc 188 mg/dL Normal <200 [facility] Comment on above: Result Comment: <200 mg/dL, Desirable 20 0-239 mg/dL, Borderline high>239 mg/dL, High Performed By: #### C BC, CMP, LIPNF ####[facility] [place], [place] [address] [place] [phone] Cholesterol.tota l/Cholesterol in HDL mass ratio 3.55 mg/dL Normal <5.10 [facility] Comment on above: Performed By: #### CBC, CMP, LIPNF ####C [place] [phone] HDL Cholesterol, NF 53 mg/dL Normal >39 [facility] Comment on above: Result Comment: 40-59 mg/dL, Acceptable> 59 mg/dL, High: Negative risk factor for coronary heart disease<40 mg/dL, Low: Positive risk factor for coronary heart disease Performed By: #### C BC, CMP, LIPNF ####[facility] [place], [place] [phone] LDL Cholesterol, NF 113 mg/dL High <100 [facility] Comment on above: Result Comment: <100 mg/dL, Optimal 100- 129 mg/dL, Near optimal/above optimal 130-159 mg/dL, Borderline high 160-189 mg/dL, High>189 mg/dL, Very highSecondary prevention optimal LDL Cholesterol levels are recommended to be < 70 mg/dL Performed By: #### C BC CMP, LIPNF ####[address] [phone] Non HDL Chol, NF 135 mg/dL High <130 [facility] Comment on above: Result Comment: <130 mg/dL, Optimal 130- 159 mg/dL, Near optimal/above optimal 160-189 mg/dL, Borderline high 190-219 mg/dL, High>219 mg/dL, Very highSecondary prevention optimal non HDL Cholesterol levels are recommended to be < 100 mg/dL Performed By: #### C BC, CMP, LIPNF ####[place] [phone] Triglycerides, NF 111 mg/dL Normal <150 [facility] Comment on above: Result Comment: <150 mg/dL, Normal 150-1 99 mg/dL, Borderline high 200-499 mg/dL, High>499 mg/dL, Very high Performed By: #### C BC, CMP, LIPNF ####[place] [phone] VLDL Cholesterol, NF 22 mg/dL Normal <30 [facility] Comment on above: Performed By: #### CBC, CMP, LIPNF ####C [place] [phone] CNOVon 04-01-2018 CNOV Office Visit (INTMWS) ----CITLALLI MOSS JR. ([id number]) 1970 MDate Time Provider Department04/01/18 2:40 PM DENIS LOU (BETTYE) INTMWS During your visit today, we recorded the following information about you: Temperature Pulse Respiration Blood pressure 97.9 degrees 94/minute 16/minute 130/80 Weight 105.7 kgDenis Lou APRN.CNP 04/01/2018 4:03 PM SignedCC: Patient presents with:Refill Request: Medication refillHPIJosechriss Moss Jr. is a 48 year old male who presents today for medicationrefills.[id number]: patient reports being on maintenance dosing Valtrex. Denies any recentoutbreaks. Has been without his medication for some time now as he has beenwithout insurance and unable to schedule appointments. Tolerates medicationwithout side effects typically.Rosacea: Diagnosed by dermatology years ago. Consistent erythema to bilateralcheeks and nose typically. Notes sometimes erythema will extend along jaw line.Does well with avoiding triggers ie: sun and close shaving. On topicaltreatment, doing well. Requesting refill today.GERD. Since our last visit over 1 year ago he has been doing well. Currentsymptoms include occasional upset or burning sensation in the stomach. rare ontherapy of lansoprazole (Prevacid) prn. Symptoms are precipitated with dietaryindescretions, spicy foods and laying flat and alleviated with sitting up,taking antacids, elevating the head and avoiding late night meals. Patientdoes not some binge drinking over the past year. Since his children have beengrown and out of the house he will spend weekends or evenings sipping hardliquor or beer. Some days he will get drunk. Denies blacking out, drinking anddriving or going through DTs.REVIEW OF SYSTEMSGeneral: no fevers, no chills, no night sweats, no recurrent infections, nochange in appetite, no change in energy and no significant changes in weightHEENT: no frequent or significant headaches, no changes in hearing, no visualchanges, no nose bleeds, no sinus or nasal problemsNeck: no lumps, no pain and no swellingRespiratory: no cough, no wheezing, no shortness of breath, no hemoptysisCardiovascular: no chest pain, no chest pressure, no palpitations and noswellingGI: No nausea, vomiting, or diarrheaGU: No history of dysuria, frequency or incontinenceSkin: See HPINeurologic: No headache, weakness, numbness, tingling, neck stiffness, tremor,vertigo, dizziness, memory loss, syncope.PAST MEDICAL HISTORYDiagnosis Date- Asthma childhood and adult while smoking- Kidney stones- Right hip pain- Right shoulder injuryPAST SURGICAL HISTORYProcedure Laterality Date- KIDNEY STONE SURGERY HXALLERGIES Patient has no known allergies.MEDICATIONSvalACYc lovir (VALTREX) 1 gram tab Take 1 tablet by mouth once daily.acidophilus-pectin, citrus (ACIDOPHILUS PROBIOTIC) 100 million cell-10 mg capTake 1 capsule by mouth twice daily as needed.lansoprazole (PREVACID) 30 mg capsule Take 1 capsule by mouth daily beforebreakfast. 1/2 hr before meal.FAMILY HISTORYProblem Relation Age of Onset- Diabetes Father- Hypertension Father- Heart Father- Kidney Disease Father- dementia [Other] [OTHER] Mother- Diabetes Mother dietSocial HistorySubstance Use Topics- Smoking status: Former Smoker- Smokeless tobacco: Not on file- Alcohol use Yes Comment: occasionallyPHYSICAL EXAMBP 130/80 Pulse 94 Temp 36.6 ?C (97.9 ?F) (Temporal Artery) Resp 16 Wt 105.7 kg (233 lb) SpO2 96% BMI 29.92 kg/m?General Appearance: well appearing, in no acute distress, alertSkin: Skin color, texture, turgor normal for age; except mild erythema notedacross bilateral cheeks and noseHead: normocephalic, atraumaticEyes: conjunctiva pink and moist, no icterus, sclera white, non-injectedLungs: Lungs clear to auscultation. No wheezing, rhonchi, ralesHeart: RRR without murmur, gallop, or rubs. No ectopyDTAP,TDAP,TD(1 - Tdap) due on 01/13/1991LIPID SCREEN due on 01/13/2007DIABETES SCREEN due on 01/13/2017INFLUENZA(1) due on 04/25/2018ASSESSMENT/PLAN:1. Annual physical exam - ICD9: V70.0, ICD10: Z00.00 (primary diagnosis)- Recommended regular aerobic exercise.- Check CMP and lipid panel and CBC- Follow up for annual exam in one year.2. Genital herpes in men - ICD9: 054.10, ICD10: A60.02 (primary diagnosis)- Well managed with Valtrex, no recent out breaks- VALACYCLOVIR 1 GRAM TABLET- Follow up 1 year- Will check CMP/CBC given food services manager use of medications3. Rosacea - ICD9: 695.3, ICD10: L71.9- Controlled with medication- DESONIDE 0.05 % TOPICAL OINTMENT- Follow up in 1 year and with Dermatology4. Gastroesophageal reflux disease without esophagitis - ICD9: 530.81, ICD10:K21.9- Discussed lifestyle modifications including limiting caffeine, no mealsthree hours before sleep and head of bed elevation- Continue treatment with Prevacid 30 mg QD- Follow up in 2xfdzr0. Medication monitoring encounter - ICD9: V58.83, ICD10: Z51.81- CBC6. Screening cholesterol level - ICD9: V77.91, ICD10: Z13.220- LIPID PANEL, NONFASTING7. Encounter for screening for diabetes mellitus - ICD9: V77.1, ICD10: Z13.1- COMP METABOLIC PANELPatient notes he is without insurance at this time and he must pay foreverything out of pocket therefore may not be able to have lab work completedat this time. Stressed necessity and which labs are of priority to safelyprescribe medications he is on. Patient verbalizes understanding and is goingto meet with financial counselor after visit.Denis Lou APRN.CNPPrescription instructions reviewed with patient as applicable. Potential redflag symptoms discussed with the patient. Reviewed appropriate action plan totake if red flag symptoms occur. Patient agreeable to treatment plan.Denis Lou APRN.NUCLEAR RADIATION ENGINEER 04/01/2018 3:31 PM SignedIf only able to complete one of the ordered labs, please have CMP completed.Referring Provider: NOE ESTRELLA [[id number]]Allergies As of Date: 04/01/2018(No Known Allergies)Date Reviewed: 04/01/2018Reviewed by: Brigid Millard Ma - Fully AssessedReason for Visit: Refill Request [94] Cmt: Medication refillPrimary Visit Diagnosis:Annual physical exam [Z00.00] Other Visit Diagnoses:Genital herpes in men [A60.02] Rosacea [L71.9] Gastroesophageal reflux disease without esophagitis [K21.9] Medication monitoring encounter [Z51.81] Screening cholesterol level [Z13.220] Encounter for screening for diabetes mellitus [Z13.1]Order(s):valACYclovir (VALTREX) 1 gram tabTake 1 tablet by mouth once daily.Disp: 90 tabletRfl: 3 desonide (DESOWEN) 0.05 % ointmentApply 1 application to affected area twice daily.Disp: 60 gRfl: 1 LIPID PANEL, NONFASTING [SQLIPNF] Order #: [id number] FUTURE COMP METABOLIC PANEL [SQCMP] Order #: [id number] FUTURE CBC [SQCBC] Order #: [id number] FUTUREPrescriptions as of 04/01/2018 Sig: VALACYCLOVIR 1 GRAM TABLET Take 1 tablet by mouth once d* DESONIDE 0.05 % TOPICAL OINTM* Apply 1 application to affect* ACIDOPHILUS 100 MILLION CELL-* Take 1 capsule by mouth twice* LANSOPRAZOLE 30 MG CAPSULE,DE* Take 1 capsule by mouth daily*Problem List As Of Date 04/01/2018 Noted Resolved Genital herpes in men [A60.02] INVALID FOR* More... 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 Rosacea [L71.9] INVALID FOR* Gastroesophageal reflux disease without esophag*INVALID FOR* Other instructions from your clinician: If only able to complete one of the ordered labs, please have CMP completed.Prescriptions ordered this encounter Disp Refills Start End VALACYCLOVIR 1 GRAM TABLET 90 t* 3 04/01/2018 Route: ORAL Sig: Take 1 tablet by mouth once daily. DESONIDE 0.05 % TOPICAL OINTMENT 60 g 1 04/01/2018 Route: TOPICAL Sig: Apply 1 application to affected area twice daily.Medications Discontinued During This Encounter predniSONE (DELTASONE) 10 mg tablet 21 t* 0 06/12/2015 04/01/2018 Class: Print RX Sig: Take 4 tabs daily for 3 days, then 2 tabs daily for 3 days, then 1 tab daily for 3 days with food. Disc: Reason for discontinue is not on file. meloxicam (MOBIC) 15 mg tablet 0 03/17/2015 04/01/2018 Class: Historical Med Route: ORAL Sig: Take 1 tablet by mouth once daily. With food. Disc: Reason for discontinue is not on file. valACYclovir (VALTREX) 1 gram tab 90 t* 3 05/24/2016 04/01/2018 Route: ORAL Sig: Take 1 tablet by mouth once daily. Disc: Reason for discontinue is not on file. Status:Closed by DENIS LOU CNP on 04/01/18 Normal [facility] PROGRESSon 04-01-2018 Protein mass conc HNO ID: [id number]: Denis (Bettye) Giselle: (none)Author Type: Nurse PractitionerType: Progress NotesFiled: 04/01/2018 4:03 PMNote Text:CC: Patient presents with:Refill Request: Medication refillHPIJoseph Nery Moss Jr. is a 48 year old male who presents today for medicationrefills.[id number]: patient reports being on maintenance dosing Valtrex. Denies anyrecent outbreaks. Has been without his medication for some time now as hehas been without insurance and unable to schedule appointments. Toleratesmedication without side effects typically.Rosacea: Diagnosed by dermatology years ago. Consistent erythema tobilateral cheeks and nose typically. Notes sometimes erythema will extendalong jaw line. Does well with avoiding triggers ie: sun and closeshaving. On topical treatment, doing well. Requesting refill today.GERD. Since our last visit over 1 year ago he has been doing well.Current symptoms include occasional upset or burning sensation in thestomach. rare on therapy of lansoprazole (Prevacid) prn. Symptoms areprecipitated with dietary indescretions, spicy foods and laying flat andalleviated with sitting up, taking antacids, elevating the head andavoiding late night meals. Patient does not some binge drinking over thepast year. Since his children have been grown and out of the house he willspend weekends or evenings sipping hard liquor or beer. Some days he willget drunk. Denies blacking out, drinking and driving or going through DTs.REVIEW OF SYSTEMSGeneral: no fevers, no chills, no night sweats, no recurrent infections,no change in appetite, no change in energy and no significant changes inweightHEENT: no frequent or significant headaches, no changes in hearing, novisual changes, no nose bleeds, no sinus or nasal problemsNeck: no lumps, no pain and no swellingRespiratory: no cough, no wheezing, no shortness of breath, no hemoptysisCardiovascular: no chest pain, no chest pressure, no palpitations and noswellingGI: No nausea, vomiting, or diarrheaGU: No history of dysuria, frequency or incontinenceSkin: See HPINeurologic: No headache, weakness, numbness, tingling, neck stiffness,tremor, vertigo, dizziness, memory loss, syncope.PAST MEDICAL HISTORYDiagnosis Date- Asthma childhood and adult while smoking- Kidney stones- Right hip pain- Right shoulder injuryPAST SURGICAL HISTORYProcedure Laterality Date- KIDNEY STONE SURGERY HXALLERGIES Patient has no known allergies.MEDICATIONSvalACYc lovir (VALTREX) 1 gram tab Take 1 tablet by mouth once daily.acidophilus-pectin, citrus (ACIDOPHILUS PROBIOTIC) 100 million cell-10 mgcap Take 1 capsule by mouth twice daily as needed.lansoprazole (PREVACID) 30 mg capsule Take 1 capsule by mouth daily beforebreakfast. 1/2 hr before meal.FAMILY HISTORYProblem Relation Age of Onset- Diabetes Father- Hypertension Father- Heart Father- Kidney Disease Father- dementia [Other] [OTHER] Mother- Diabetes Mother dietSocial HistorySubstance Use Topics- Smoking status: Former Smoker- Smokeless tobacco: Not on file- Alcohol use Yes Comment: occasionallyPHYSICAL EXAMBP 130/80 Pulse 94 Temp 36.6 ?C (97.9 ?F) (Temporal Artery) Resp16 Wt 105.7 kg (233 lb) SpO2 96% BMI 29.92 kg/m?General Appearance: well appearing, in no acute distress, alertSkin: Skin color, texture, turgor normal for age; except mild erythemanoted across bilateral cheeks and noseHead: normocephalic, atraumaticEyes: conjunctiva pink and moist, no icterus, sclera white, non-injectedLungs: Lungs clear to auscultation. No wheezing, rhonchi, ralesHeart: RRR without murmur, gallop, or rubs. No ectopyDTAP,TDAP,TD(1 - Tdap) due on 01/13/1991LIPID SCREEN due on 01/13/2007DIABETES SCREEN due on 01/13/2017INFLUENZA(1) due on 04/25/2018ASSESSMENT/PLAN:1. Annual physical exam - ICD9: V70.0, ICD10: Z00.00 (primary diagnosis)- Recommended regular aerobic exercise.- Check CMP and lipid panel and CBC- Follow up for annual exam in one year.2. Genital herpes in men - ICD9: 054.10, ICD10: A60.02 (primary diagnosis)- Well managed with Valtrex, no recent out breaks- VALACYCLOVIR 1 GRAM TABLET- Follow up 1 year- Will check CMP/CBC given senior care use of medications3. Rosacea - ICD9: 695.3, ICD10: L71.9- Controlled with medication- DESONIDE 0.05 % TOPICAL OINTMENT- Follow up in 1 year and with Dermatology4. 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 Medication monitoring encounter - ICD9: V58.83, ICD10: Z51.81- CBC6. Screening cholesterol level - ICD9: V77.91, ICD10: Z13.220- LIPID PANEL, NONFASTING7. Encounter for screening for diabetes mellitus - ICD9: V77.1, ICD10:Z13.1- COMP METABOLIC PANELPatient notes he is without insurance at this time and he must pay foreverything out of pocket therefore may not be able to have lab workcompleted at this time. Stressed necessity and which labs are of priorityto safely prescribe medications he is on. Patient verbalizes understandingand is going to meet with financial counselor after visit.Denis Lou APRN.CNPPrescription instructions reviewed with patient as applicable. Potentialred flag symptoms discussed with the patient. Reviewed appropriate actionplan to take if red flag symptoms occur. Patient agreeable to treatmentplan. Normal [facility] Encounters Encounter Date Encounter Type Care Provider Facility Start: 01-10-2025 End: 2025 ambulatory ABE PAUL APRN - BETTYE Facility:[facility] Start: 09-10-2024 End: 09-10-2024 ambulatory Abe Paul NP Facility:[facility] Start: 04-06-2018 Patient encounter DENIS (NUCLEAR RADIATION ENGINEER) [facility] Start: 04-01-2018 End: 04-02-2018 Patient encounter DENIS (NUCLEAR RADIATION ENGINEER) [facility] Payers Date Payer Category Payer Self-pay 2024 Unknown [id number] 1970 Unknown [id number] Unknown [id number] Summary Purpose Family History No Family History Records FoundNo Family History Records FoundNo Family History Records Found Advance Directives No Advanced Directives Records FoundNo Advanced Directives Records FoundNo Advanced Directives Records Found Additional Source Comments (unrecognized sect ion and content) No Status Records FoundNo Status Records FoundNo Status Records Found INFORMATION SOURCE (unrecogn ized section and content) DATE CREATED AUTHOR 04/10/2018 [facility] DATE CREATED AUTHOR AUTHOR'S ORGANIZ ATION 10/03/2024 [facility] DATE CREATED AUTHOR AUTHOR'S ORGANIZ ATION 01/18/2025 [facility] FOR RECORDS PERTAINING TO PATIENTS WHO ARE OR HAVE BEEN ENROLLED IN A CHEMICAL DEPENDENCY/SUBSTANCEABUSE PROGRAM, SOME INFORMATION MAY BE OMITTED. This clinical summary was aggregated from multiple sources. Caution should be exercised in using it in the provision of clinical care. This summary normalizes information from multiple sources, and as a consequence, information in this document may materially change the coding, format and clinical context of patient data. In addition, data may be omitted in some cases. CLINICAL DECISIONS SHOULD BE BASED ON THE PRIMARY CLINICAL RECORDS. [employer] provides no warranty or guarantee of the accuracy or completeness of information in this document.
[2025-07-02 09:32] LABS: Hematocrit 45.1 % (40-54); Hemoglobin 15.3 g/dL (13.0-16.5); Mean Corp Hgb Conc 33.9 g/dL (32-36); Mean Corpuscular Volume 87.6 fL (80-94); Mean Platelet Vol. 8.7 fl (6.2-12.0); Platelet Count 301 K/mm3 (150-450); RBC Distribution Width CV 12.3 % (11.6-14.6); RBC Distribution Width SD 39.2 fl (35.1-43.9); Red Blood Count 5.15 M/mm3 (4.6-6.2); White Blood Count 8.6 K/mm3 (4.4-11.0)
[2025-07-02 10:13] LABS: AST(SGOT) 34 U/L (<=37); Alanine Aminotransfer ALT/SGPT 43 U/L (<=46); Albumin, Serum 4.4 g/dL (3.5-5.0); Alkaline Phosphatase 78 U/L (40-129); Anion Gap 12 (5-15); BUN 12 mg/dL (4-19); BUN/Creat Ratio 12.8 RATIO (10-20); Calcium,Total 9.1 mg/dL (7.6-11.0); Carbon Dioxide 23.0 mmol/L (21.0-32.0); Chloride 103 mmol/L (98-108); Cholesterol 194 mg/dL (<=200); Globulin 3.2 g/dL (2.2-4.2); Glucose 157 mg/dL (70-99); Low Density Lipoprotein Calc. 132 mg/dL; Potassium 4.2 mmol/L (3.3-5.1); Triglycerides 100 mg/dL; Very Low Density Lipoprotein 20 mg/dL (5-40); Vitamin D,25 Hydroxy 39.1 ng/mL (30-100); cholesterol:hdl ratio screen 4.47
== END | disposition home or self-care (01) ==
PROVIDERS: PCP Nurse Practitioner Family; Referring Provider Nurse Practitioner Family; Visit Provider Nurse Practitioner Family
DX: E78.5 Hyperlipidemia, unspecified (principal); E11.9 Type 2 diabetes mellitus without complications; E55.9 Vitamin D deficiency, unspecified; R63.8 Other symptoms and signs concerning food and fluid intake
CPT/HCPCS: 36415; 80053; 80061; 82306; 83036; 85027